=== PATIENT | male | born 1970 ===

== ENCOUNTER 2021-08-29 15:52 | Outpatient (CLI) | payer OTHER ==
[~2021-08-29 15:52] MED LIST: LIVALO
== END 2021-08-29 16:15 | disposition home or self-care (01) ==
LOC: RAD 15:52
DX: M99.01 Segmental and somatic dysfunction of cervical region (principal); M99.02 Segmental and somatic dysfunction of thoracic region; M99.03 Segmental and somatic dysfunction of lumbar region

== ENCOUNTER 2021-09-01 08:00 | Outpatient (CLI) | payer OTHER | END 2021-09-01 08:30 | disposition home or self-care (01) | LOC: PPH VACUNA 08:00 | PROVIDERS: ATTEND Emergency Medicine Pediatric Emergency Medicine | DX: Z23 Encounter for immunization (principal) ==

== ENCOUNTER 2022-02-16 20:25 | Emergency (ER) | payer OTHER ==
[~2022-02-16] VITALS: Ht 180.3 cm; Wt 104.3 kg
[2022-02-16] MEDS ORDERED: ALBENDAZOLE200 MG PO (21:28)
== END 2022-02-16 22:03 | disposition home or self-care (01) ==
LOC: ER 20:25
DX: B76.9 Hookworm disease, unspecified (principal)